=== PATIENT | female | born 1970 | race Caucasian/White ===

== ENCOUNTER → 2023-03-06 | Outpatient (REF) | payer OTHER | LOC: M WUC 16:57 | PROVIDERS: ATTEND Student in an Organized Health Care Education/Training Program | DX: R30.0 Dysuria (principal); A49.8 Other bacterial infections of unspecified site ==

== ENCOUNTER → 2025-08-06 | Outpatient (CLI) | payer OTHER | LOC: M WHC 07:26 | PROVIDERS: ATTEND Obstetrics & Gynecology | DX: D25.9 Leiomyoma of uterus, unspecified (principal); N95.0 Postmenopausal bleeding; N83.202 Unspecified ovarian cyst, left side ==